=== PATIENT | male | born 1975 | race Caucasian/White ===

== ENCOUNTER 2017-05-14 11:37 | Emergency (ER) | payer SELFPAY ==
[~2017-05-14] VITALS: Ht 185.4 cm; Wt 84.4 kg
[~2017-05-14 11:37] MED LIST: ACYC800 PO; ALPR.5 PO; CLOT10 SUSW; CYCL10 PO; HYDACE5 PO; Motion Sickness25 M4 PO; OXYACE5T PO; PRED20 PO; PROM25 PO; Percocet 5-3251 EACH PO; TAMS.4ER PO
== END 2017-05-14 13:02 | disposition home or self-care (01) ==
LOC: ER 11:37
DX: S20.211A Contusion of right front wall of thorax, initial encounter (principal); Z87.442 Personal history of urinary calculi; F17.210 Nicotine dependence, cigarettes, uncomplicated; V09.9XXA Pedestrian injured in unspecified transport accident, initial encounter
CPT/HCPCS: 71046; 96372; 99283; J1885

== ENCOUNTER 2018-11-21 07:06 | Day surgery (SDC) | payer BC ==
[~2018-11-21] VITALS: Ht 185.4 cm; Wt 89.7 kg
--- NOTE | 2018-11-21 07:42 | NUR ---
Ambulatory in Day Surgery History, Chart, Medications and Allergies reviewed before start of procedure. Lungs clear T/O to Auscultation. Patient confirms NPO status and agrees with scheduled surgery. Patient States Post-Procedure ride home has been arranged.
--- NOTE | 2018-11-21 10:26 | NUR ---
Discharge instructions reviewed with patient. Patient verbalizes understanding. Copy given to patient to take home. Patient States Post-Procedure ride home has been arranged. Discharged via wheelchair to private car for ride home.
--- NOTE | 2018-11-22 12:26 | NUR ---
11/22/18 1226 Vaishali Vazquez VERIFICATIONS: EDIT CHART.
== END 2018-11-21 22:57 | disposition home or self-care (01) ==
LOC: ORSCMMR 07:06 → ORD 08:30 → ORSCMMR 08:30
PROVIDERS: Surgery
PROC: 0JB40ZZ Excision of Right Neck Subcutaneous Tissue and Fascia, Open Approach (ICD-10-PCS; principal; 2018-11-21 08:30)
PROC: 0JB50ZZ Excision of Left Neck Subcutaneous Tissue and Fascia, Open Approach (ICD-10-PCS; principal; 2018-11-21 08:30)
DX: D17.0 Benign lipomatous neoplasm of skin and subcutaneous tissue of head, face and neck (principal); F17.210 Nicotine dependence, cigarettes, uncomplicated
CPT/HCPCS: 88304; J0690; J2250; J2704; J3010; J7120

== ENCOUNTER 2019-03-12 10:02 | Day surgery (SDC) | payer BC ==
[~2019-03-12] VITALS: Ht 185.4 cm; Wt 91.8 kg
== END 2019-03-12 12:40 | disposition home or self-care (01) ==
LOC: ORSCSDS 10:02
PROVIDERS: Internal Medicine Gastroenterology
PROC: 0DB88ZX Excision of Small Intestine, Via Natural or Artificial Opening Endoscopic, Diagnostic (ICD-10-PCS; principal; 2019-03-12 11:30)
DX: K92.1 Melena (principal); Z83.71 Family history of colonic polyps; Z80.0 Family history of malignant neoplasm of digestive organs; K59.00 Constipation, unspecified; K64.8 Other hemorrhoids; K52.9 Noninfective gastroenteritis and colitis, unspecified; F17.210 Nicotine dependence, cigarettes, uncomplicated; Z79.899 Other long term (current) drug therapy
CPT/HCPCS: 88305; J2704; J7120

== ENCOUNTER → 2019-07-05 | Outpatient (CLI) | payer BC | END | disposition home or self-care (01) | LOC: LAB EV 14:40 → LAB SHORT 14:40 | DX: J02.9 Acute pharyngitis, unspecified (principal) | CPT/HCPCS: 87081 ==

== ENCOUNTER 2021-09-13 10:58 | Emergency (ER) | payer BC ==
[~2021-09-13] VITALS: Ht 185.4 cm; Wt 87.1 kg
[2021-09-13] MEDS ORDERED: BUSPIRONE HCL10 M6 PO (11:53)
[2021-09-13] MEDS ORDERED: QUETIAPINE FUMA25 MG PO (11:53)
[2021-09-13] MEDS ORDERED: LISI20 PO (11:53)
[2021-09-13 12:05] LABS: Calcium, Ionized (POC) 1.11 mmol/L (1.10-1.46); Chloride (POC) 104 mmol/L (98-108); Creatinine (POC) 1.1 mg/dL (0.8-1.3); Glucose (ISTAT POC) 102 mg/dL (70-99); Potassium (POC) 4.4 mmol/L (3.5-5.5); Sodium (POC) 138 mmol/L (135-148); Total CO2 (POC) 23 mmol/L (21-32)
[2021-09-13] MEDS ORDERED: Percocet 7.5-31 EACH PO (13:23)
== END 2021-09-13 14:13 | disposition home or self-care (01) ==
LOC: ER 10:58
PROVIDERS: Emergency Medicine
DX: S22.088A Other fracture of T11-T12 vertebra, initial encounter for closed fracture (principal); F17.210 Nicotine dependence, cigarettes, uncomplicated; W11.XXXA Fall on and from ladder, initial encounter; Z79.899 Other long term (current) drug therapy
CPT/HCPCS: 70450; 71260; 72125; 74177; 80047; 85014; J1170; Q9967